=== PATIENT | female | born 1965 ===

== ENCOUNTER 2018-03-08 14:01 | Emergency (ER) | payer OTHER ==
[2018-03-08 14:01] VITALS: BMI 32.3
[2018-03-08 14:20] VITALS: RESP 18
[2018-03-08 14:27] VITALS: BP 115/72; PULSE 72; TEMP 98.9; O2SAT 95
--- NOTE | 2018-03-08 14:55 | C.PDOC ---
History Of Present Illness 53 y/o female presents to ED with c/o cough productive of yellow phlegm and throat pain for 1 week. Patient denies fever, chills, ear pain, abdominal pain, nausea, vomiting or any other complaints at this time. Time Seen by Provider: 03/08/18 14:36 Chief Complaint (Nursing): ENT Problem History Per: Patient History/Exam Limitations: no limitations Onset/Duration Of Symptoms: Days Current Symptoms Are (Timing): Still Present Past Medical History Reviewed: Historical Data, Nursing Documentation, Vital Signs Vital Signs: Last Vital Signs Temp 98.9 F 03/08/18 14:23 Pulse 72 03/08/18 14:23 Resp 18 03/08/18 14:23 BP 115/72 03/08/18 14:23 Pulse Ox 95 03/08/18 14:23 - Medical History PMH: No Chronic Diseases Surgical History: No Surg Hx Family History: States: No Known Family Hx - Social History Hx Alcohol Use: No Hx Substance Use: No - Immunization History Hx Tetanus Toxoid Vaccination: No Hx Influenza Vaccination: No Hx Pneumococcal Vaccination: No Review Of Systems Except As Marked, All Systems Reviewed And Found Negative. ENT: Positive for: Throat Pain Respiratory: Positive for: Cough Physical Exam - Physical Exam Appears: Non-toxic, No Acute Distress Skin: Warm, Dry, No Rash Head: Atraumatic, Normacephalic Eye(s): bilateral: Normal Inspection Oral Mucosa: Moist Throat: Normal, No Erythema, No Exudate Neck: Supple Cardiovascular: Rhythm Regular Respiratory: Normal Breath Sounds, No Rales, No Rhonchi, No Wheezing Gastrointestinal/Abdominal: Soft, No Tenderness, No Guarding, No Rebound Neurological/Psych: Oriented x3, Normal Speech, Normal Cognition ED Course And Treatment O2 Sat by Pulse Oximetry: 95 (RA) Pulse Ox Interpretation: Normal Disposition Counseled Patient/Family Regarding: Studies Performed, Diagnosis, Need For Followup, Rx Given - Disposition Referrals: [facility] at [facility] [Outside] Disposition: HOME/ ROUTINE Disposition Time: 15:08 Condition: STABLE Additional Instructions: follow up with your doctor or medical clinic within 2 days call to make an appointment take medications as prescribed return to ER if symptoms worsens or progress Prescriptions: Azithromycin [Zithromax] 250 mg PO DAILY #4 tab Benzonatate [Tessalon Perles] 100 mg PO BID PRN #14 tab PRN Reason: Cough Instructions: Acute Bronchitis, Adult (DC) Forms: [facility] (Pashto), Gen Discharge Inst Pashto - Clinical Impression Clinical Impression: Bronchitis - Scribe Statement The provider has reviewed the documentation as recorded by the Shainaibprince Sweeney All medical record entries made by the Shainaibe were at my direction and personally dictated by me. I have reviewed the chart and agree that the record accurately reflects my personal performance of the history, physical exam, medical decision making, and the department course for this patient. I have also personally directed, reviewed, and agree with the discharge instructions and disposition.
== END 2018-03-08 15:24 | disposition home or self-care (01) ==
LOC: C.ER 14:01
DX: J40 Bronchitis, not specified as acute or chronic (principal)